=== PATIENT | male | born 1985 | race Caucasian/White ===

== ENCOUNTER 2018-02-09 00:08 | Emergency (ER) | payer SELFPAY ==
[~2018-02-09] VITALS: Ht 177.8 cm; Wt 77.1 kg
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
[2018-02-09 00:11] VITALS: BP 154/87
--- NOTE | 2018-02-09 00:45 | NUR ---
Patient discharged with v/s stable. Written and verbal after care instructions given and explained. Patient verbalized understanding. Ambulatory with steady gait. All questions addressed prior to discharge. Advised to follow up with PMD.
== END 2018-02-09 00:45 | disposition home or self-care (01) ==
LOC: MED 00:08
DX: Z04.1 Encounter for examination and observation following transport accident (principal); R07.89 Other chest pain; V43.52XA Car driver injured in collision with other type car in traffic accident, initial encounter; Y93.89 Activity, other specified; Y92.89 Other specified places as the place of occurrence of the external cause; Y99.8 Other external cause status
CPT/HCPCS: 71045; 99283; Q0092